=== PATIENT | female | born 1980 | race Caucasian/White ===

== ENCOUNTER 2016-12-04 13:48 | Emergency (ER) | payer MEDICAID ==
[~2016-12-04] VITALS: Ht 157.5 cm; Wt 98.0 kg
[2016-12-04 13:51] VITALS: BP_SYST 168
[2016-12-04 14:24] LABS: BILIRUBIN,URINE NEGATIVE (NEGATIVE); CLARITY/URINE CLEAR (CLEAR); COLOR,URINE YELLOW (YELLOW); GLUCOSE,URINE NEGATIVE (NEGATIVE); KETONES,URINE NEGATIVE (NEGATIVE); LEUKOCYTE ESTERASE ,URINE NEGATIVE (NEGATIVE); NITRITE, URINE NEGATIVE (NEGATIVE); PROTEIN URINE NEGATIVE (NEGATIVE); UROBILINOGEN,URINE 0.2 (0.2-1.0)
[2016-12-04 14:27] LABS: BASOPHILS # (AUTO) 0.1 K/uL (0.0-0.2); BASOPHILS % (AUTO) 0.6 % (0.0-2.0); EOSINOPHILS # (AUTO) 0.3 K/uL (0.0-0.4); EOSINOPHILS % (AUTO) 2.8 % (0.0-4.0); HEMATOCRIT 37.8 % (36-48); LYMPHOCYTES # (AUTO) 2.8 K/uL (1.0-5.5); LYMPHOCYTES % (AUTO) 29.2 % (20.5-51.5); MEAN CORPUSCULAR HEMOGLOBIN 30 pg (27-31); MEAN CORPUSCULAR HGB CONC 34 % (32-36); MEAN CORPUSCULAR VOLUME 87 fL (79.0-98.0); MONOCYTES # (AUTO) 0.4 K/uL (0.0-1.0); MONOCYTES % (AUTO) 4.7 % (1.7-9.3); NEUTROPHILS # (AUTO) 5.9 K/uL (1.8-7.7); NEUTROPHILS % (AUTO) 62.7 % (40.0-70.0); PLATELET COUNT (AUTO) 236 K/uL (130-430); RED BLOOD CELL COUNT(AUTO) 4.34 MIL/uL (4.2-6.2); RED CELL DISTRIBUTION WIDTH 12.7 % (9.0-15.0); WHITE BLOOD COUNT (AUTO) 9.5 K/uL (4.8-10.8)
[2016-12-04] MEDS ORDERED: hydrALAZINE HCL 20 MG/ML VIAL IVP ONE (14:30)
[2016-12-04] MEDS ORDERED: FIORCET PO ONE (14:30)
[2016-12-04 14:38] LABS: CALCIUM 8.7 mg/dL (8.4-11.0); CREATININE 0.97 mg/dL (0.55-1.30); POTASSIUM 3.4 mmol/L (3.5-5.1)
[2016-12-04 14:42] LABS: BLOOD, URINE TRACE (NEGATIVE); PROTHROMBIN TIME 10.5 SECS (9.5-12.5)
[2016-12-04 14:43] LABS: ALBUMIN 3.9 g/dL (3.4-4.8); TOTAL BILIRUBIN 0.3 mg/dL (0.0-1.0)
[2016-12-04 14:54] LABS: BACTERIA,URINE FEW /HPF (None Seen); MUCUS,URINE 1+ /LPF (None Seen); RBC,URINE 0-3 /HPF (0-3); WBC,URINE 0-3 /HPF (0-3)
[2016-12-04 17:40] VITALS: BP_SYST 148
== END 2016-12-04 17:40 | disposition home or self-care (01) ==
LOC: SED 13:48
DX: M94.0 Chondrocostal junction syndrome [Tietze] (principal); I10 Essential (primary) hypertension; Z90.49 Acquired absence of other specified parts of digestive tract
CPT/HCPCS: 36415; 71010; 80053; 81000; 83880; 84484; 85025; 85610; 85730; 93005; 96374; 99285; J0360

== ENCOUNTER 2018-07-05 10:02 | Emergency (ER) | payer MEDICAID ==
[~2018-07-05] VITALS: Ht 157.5 cm; Wt 108.9 kg
[2018-07-05 10:15] VITALS: BP_SYST 202
[2018-07-05] MEDS ORDERED: NACL 0.9% 1,000 ML IV ONE (10:31)
[2018-07-05] MEDS ORDERED: DIPHENHYDRAMINE INJ 50 MG/ML VIAL IVP ONE (10:45)
[2018-07-05] MEDS ORDERED: ONDANSETRON HCL 4 MG/2 ML VIAL IVP ONE (10:45)
[2018-07-05] MEDS ORDERED: KETOROLAC TROMETHAMINE 30 MG VIAL IVP ONE (10:45)
[2018-07-05 11:09] LABS: CALCIUM 8.9 mg/dL (8.4-11.0); CREATININE 0.85 mg/dL (0.55-1.30); POTASSIUM 4.2 mmol/L (3.5-5.1)
[2018-07-05 11:11] LABS: BILIRUBIN,URINE NEGATIVE (NEGATIVE); BLOOD, URINE 1+ (NEGATIVE); CLARITY/URINE CLEAR (CLEAR); COLOR,URINE YELLOW (YELLOW); GLUCOSE,URINE NEGATIVE (NEGATIVE); KETONES,URINE NEGATIVE (NEGATIVE); LEUKOCYTE ESTERASE ,URINE NEGATIVE (NEGATIVE); NITRITE, URINE NEGATIVE (NEGATIVE); PH,URINE 6.5 (5.0-8.0); PROTEIN URINE NEGATIVE (NEGATIVE); UROBILINOGEN,URINE 0.2 (0.2-1.0)
[2018-07-05 11:13] LABS: ALBUMIN 3.8 g/dL (3.4-4.8); TOTAL BILIRUBIN 0.3 mg/dL (0.0-1.0)
[2018-07-05 11:21] LABS: BASOPHILS % (AUTO) 0.6 % (0.0-2.0); EOSINOPHILS # (AUTO) 0.3 K/uL (0.0-0.4); EOSINOPHILS % (AUTO) 3.4 % (0.0-4.0); HEMATOCRIT 40.1 % (36-48); HEMOGLOBIN 13.2 g/dL (12.0-16.0); LYMPHOCYTES % (AUTO) 26.5 % (20.5-51.5); MEAN CORPUSCULAR HEMOGLOBIN 29 pg (27-31); MEAN CORPUSCULAR HGB CONC 33 % (32-36); MEAN CORPUSCULAR VOLUME 89 fL (79.0-98.0); MONOCYTES # (AUTO) 0.3 K/uL (0.0-1.0); MONOCYTES % (AUTO) 4.1 % (1.7-9.3); NEUTROPHILS # (AUTO) 4.9 K/uL (1.8-7.7); NEUTROPHILS % (AUTO) 65.4 % (40.0-70.0); PLATELET COUNT (AUTO) 275 K/uL (130-430); RED BLOOD CELL COUNT(AUTO) 4.51 MIL/uL (4.2-6.2); RED CELL DISTRIBUTION WIDTH 13.8 % (9.0-15.0); WHITE BLOOD COUNT (AUTO) 7.4 K/uL (4.8-10.8)
[2018-07-05 11:25] LABS: PROTHROMBIN TIME 9.9 SECS (9.5-12.5)
[2018-07-05 11:32] LABS: BACTERIA,URINE RARE /HPF (None Seen); WBC,URINE NONE SEEN /HPF (0-3)
[2018-07-05] MEDS ORDERED: cloNIDine HCL 0.1 MG TABLET PO ONE (12:00)
[2018-07-05 13:22] VITALS: BP_SYST 144
== END 2018-07-05 13:22 | disposition home or self-care (01) ==
LOC: SED 10:02
DX: G43.909 Migraine, unspecified, not intractable, without status migrainosus (principal); I10 Essential (primary) hypertension
CPT/HCPCS: 36415; 80053; 81000; 81025; 82150; 83690; 85025; 85610; 85730; 96374; 96375; 99283; J1200; J1885; J2405; J7030

== ENCOUNTER 2019-01-03 09:39 | Emergency (ER) | payer MEDICAID ==
[~2019-01-03] VITALS: Ht 157.5 cm; Wt 11.8 kg
[2019-01-03] MEDS ORDERED: NACL 0.9% 1,000 ML IV ONE (09:44)
[2019-01-03 09:46] VITALS: BP_SYST 155
[2019-01-03 10:52] LABS: BASOPHILS % (AUTO) 0.3 % (0.0-2.0); EOSINOPHILS # (AUTO) 0.1 K/uL (0.0-0.4); EOSINOPHILS % (AUTO) 1.4 % (0.0-4.0); HEMATOCRIT 37.2 % (36-48); HEMOGLOBIN 12.9 g/dL (12.0-16.0); LYMPHOCYTES # (AUTO) 1.7 K/uL (1.0-5.5); LYMPHOCYTES % (AUTO) 16.8 % (20.5-51.5); MEAN CORPUSCULAR HEMOGLOBIN 31 pg (27-31); MEAN CORPUSCULAR HGB CONC 35 % (32-36); MEAN CORPUSCULAR VOLUME 90 fL (79.0-98.0); MONOCYTES # (AUTO) 0.4 K/uL (0.0-1.0); MONOCYTES % (AUTO) 4.1 % (1.7-9.3); NEUTROPHILS # (AUTO) 7.9 K/uL (1.8-7.7); NEUTROPHILS % (AUTO) 77.4 % (40.0-70.0); PLATELET COUNT (AUTO) 223 K/uL (130-430); RED BLOOD CELL COUNT(AUTO) 4.13 MIL/uL (4.2-6.2); RED CELL DISTRIBUTION WIDTH 13.4 % (9.0-15.0); WHITE BLOOD COUNT (AUTO) 10.2 K/uL (4.8-10.8)
[2019-01-03 10:56] LABS: BILIRUBIN,URINE NEGATIVE (NEGATIVE); BLOOD, URINE 1+ (NEGATIVE); CLARITY/URINE CLEAR (CLEAR); COLOR,URINE YELLOW (YELLOW); GLUCOSE,URINE NEGATIVE (NEGATIVE); KETONES,URINE NEGATIVE (NEGATIVE); LEUKOCYTE ESTERASE ,URINE NEGATIVE (NEGATIVE); NITRITE, URINE NEGATIVE (NEGATIVE); PH,URINE 6.5 (5.0-8.0); PROTEIN URINE NEGATIVE (NEGATIVE); UROBILINOGEN,URINE 0.2 (0.2-1.0)
[2019-01-03 10:57] LABS: BACTERIA,URINE FEW /HPF (None Seen); RBC,URINE 0-3 /HPF (0-3); WBC,URINE 0-3 /HPF (0-3)
[2019-01-03 11:00] LABS: CALCIUM 8.7 mg/dL (8.4-11.0); CREATININE 0.68 mg/dL (0.55-1.30); POTASSIUM 3.4 mmol/L (3.5-5.1)
[2019-01-03 11:04] LABS: PROTHROMBIN TIME 9.9 SECS (9.5-12.5)
[2019-01-03 11:23] LABS: ALBUMIN 3.3 g/dL (3.4-4.8); TOTAL BILIRUBIN 0.2 mg/dL (0.0-1.0)
[2019-01-03] MEDS ORDERED: RHO(D) IMMUNE GLOBULIN/MALTOSE 1500 UNITS/1.3 ML (WINHRO) INJ ONE (12:45)
[2019-01-03 14:23] VITALS: BP_SYST 135
== END 2019-01-03 14:23 | disposition home or self-care (01) ==
LOC: SED 09:39
DX: O20.0 Threatened abortion (principal); I10 Essential (primary) hypertension; Z3A.12 12 weeks gestation of pregnancy; Z29.13 Encounter for prophylactic Rho(D) immune globulin
CPT/HCPCS: 36415; 76805; 80053; 81000; 82150; 83605; 83690; 84702; 85025; 85610; 85730; 86886; 86900; 86901; 87040; 96372; 99284; J2790; J2792; J7030

== ENCOUNTER 2019-10-10 14:41 | Emergency (ER) | payer MEDICAID ==
[~2019-10-10] VITALS: Ht 157.5 cm; Wt 106.6 kg
--- NOTE | 2019-10-10 15:00 | NUR ---
PLACED IN [facility], DR. RODGERS AT BEDSIDE
--- NOTE | 2019-10-10 15:12 | NUR ---
Patient given written and verbal discharge instructions and verbalizes understanding. ER MD discussed with patient the results and treatment provided. Patient in stable condition. ID arm band removed. Rx of TYLENOL, NEOSPORIN, KEFLEX, given. Patient educated on pain management and to follow up with PMD. Pain Scale 0/10 Opportunity for questions provided and answered. Medication side effect fact sheet provided.
[2019-10-10] MEDS ORDERED: BACITRACIN 1 GM OINT TP ONE (15:15)
== END 2019-10-10 15:12 | disposition home or self-care (01) ==
LOC: SED 14:41
DX: L03.012 Cellulitis of left finger (principal); I10 Essential (primary) hypertension; Z90.710 Acquired absence of both cervix and uterus; F17.200 Nicotine dependence, unspecified, uncomplicated
CPT/HCPCS: 99283

== ENCOUNTER 2020-09-28 14:02 | Emergency (ER) | payer MEDICAID, OTHER ==
[~2020-09-28] VITALS: Ht 157.5 cm; Wt 106.6 kg
[2020-09-28 14:11] VITALS: BP_SYST 169
--- NOTE | 2020-09-28 14:11 | NUR ---
Patient to ER bed 07 to gown for evaluation. Side rails up.
--- NOTE | 2020-09-28 14:13 | NUR ---
PT CAME TO ER FOR CP AND HTN WHICH STARTED TODAY AT 1130. BP AT HOME WAS 171/106. PAIN IS 1/10 TO THE LEFT SIDE OF THE CHEST. PT TOOK 2 ASPIRINS WHEN PAIN STARTED. PT IS CALM AND COOPERATIVE IN ED.
--- NOTE | 2020-09-28 14:16 | NUR ---
Pt came to ER for L chest pain, pt states she gets chest pain when her blood pressure is high. Pt reports L chest pain 2/10, resting in gurney comfortably, EKG completed, no distress noted, awaiting MD vidal
--- NOTE | 2020-09-28 14:27 | NUR ---
ER at bedside examining patient.
[2020-09-28] MEDS ORDERED: cloNIDine HCL 0.1 MG TABLET PO ONE (15:30)
[2020-09-28 15:33] LABS: BASOPHILS # (AUTO) 0.2 K/uL (0.0-0.2); BASOPHILS % (AUTO) 1.9 % (0.0-2.0); EOSINOPHILS # (AUTO) 0.2 K/uL (0.0-0.4); EOSINOPHILS % (AUTO) 1.9 % (0.0-4.0); HEMATOCRIT 37.5 % (36-48); HEMOGLOBIN 12.6 g/dL (12.0-16.0); LYMPHOCYTES # (AUTO) 1.4 K/uL (1.0-5.5); LYMPHOCYTES % (AUTO) 15.7 % (20.5-51.5); MEAN CORPUSCULAR HEMOGLOBIN 30 pg (27-31); MEAN CORPUSCULAR HGB CONC 34 % (32-36); MEAN CORPUSCULAR VOLUME 89 fL (79.0-98.0); MONOCYTES # (AUTO) 0.4 K/uL (0.0-1.0); MONOCYTES % (AUTO) 4.5 % (1.7-9.3); NEUTROPHILS # (AUTO) 6.9 K/uL (1.8-7.7); PLATELET COUNT (AUTO) 229 K/uL (130-430); RED CELL DISTRIBUTION WIDTH 13.7 % (9.0-15.0); WHITE BLOOD COUNT (AUTO) 9.1 K/uL (4.8-10.8)
[2020-09-28 15:52] LABS: CALCIUM 8.7 mg/dL (8.4-11.0); CREATININE 0.89 mg/dL (0.55-1.30); POTASSIUM 4.2 mmol/L (3.5-5.1)
[2020-09-28 15:58] LABS: ALBUMIN 3.6 g/dL (3.4-4.8); TOTAL BILIRUBIN 0.3 mg/dL (0.0-1.0)
--- NOTE | 2020-09-28 16:01 | NUR ---
DR. KEARNEY IS AWARE OF ELEVATED BLOOD PRESSURE
[2020-09-28] MEDS ORDERED: NACL 0.9% 1,000 ML IV ONE (16:15)
[2020-09-28] MEDS ORDERED: hydrALAZINE HCL 20 MG/ML VIAL IVP ONE (16:15)
[2020-09-28] MEDS ORDERED: LISI20TA30 PO (16:59)
[2020-09-28] MEDS ORDERED: LISINOPRIL 10 MG TABLET (PRINIVIL) PO ONE (17:00)
[2020-09-28 17:08] VITALS: BP_SYST 138
--- NOTE | 2020-09-28 17:08 | NUR ---
Patient given written and verbal discharge instructions and verbalizes understanding. ER MD discussed with patient the results and treatment provided. Patient in stable condition. ID arm band removed. IV catheter removed intact and dressing applied, no active bleeding. Rx of LISINOPRIL given. Patient educated on pain management and to follow up with PMD. Pain Scale 0/10. Opportunity for questions provided and answered. Medication side effect fact sheet provided.
== END 2020-09-28 17:08 | disposition home or self-care (01) ==
LOC: SED 14:02
DX: R07.89 Other chest pain (principal); I10 Essential (primary) hypertension; F17.210 Nicotine dependence, cigarettes, uncomplicated
CPT/HCPCS: 36415; 71045; 80053; 83880; 84484; 85025; 93005; 96361; 96374; 99285; J0360; J7030

== ENCOUNTER 2020-10-10 05:23 | Emergency (ER) | payer OTHER, MEDICAID ==
[~2020-10-10] VITALS: Ht 157.5 cm; Wt 98.9 kg
[~2020-10-10 05:23] MED LIST: LISI20TA30 PO
--- NOTE | 2020-10-10 05:28 | NUR ---
Placed in room 4 . Placed on combining machine operator, blood pressure machine and pulse oximeter. To gown for exam. Side rails up. Report given to TREASURE HEAD.
--- NOTE | 2020-10-10 05:28 | NUR ---
Received patient to ER via BLS ambulance w/ c/o dizziness ongoing since 399 associated w/ a h/a. No neuro focal deficits noted but patient states that her peripheral vision feels as she diminshing. Introduced self to patient, positioned for comfort and safety w/ bed to low position sr up, continue to monitor. Patient resting quietly. No acute distress noted. Vital signs within normal range.
[2020-10-10 05:30] VITALS: BP_SYST 118
--- NOTE | 2020-10-10 05:45 | NUR ---
ER at bedside examining patient.
[2020-10-10] MEDS ORDERED: NS 500 ML IV ONE (06:00)
--- NOTE | 2020-10-10 06:00 | NUR ---
# 20 gauge angiocath placed to RAC. Use of asceptic technique. Opsite placed over site. Blood return noted. Blood for lab drawn from site. Flushed with 10 cc of normal saline. No evidence of infiltration noted. Patient tolerated well.
[2020-10-10] MEDS ORDERED: MECLIZINE HCL 25 MG TABLET (ANITVERT) PO ONE (06:15)
--- NOTE | 2020-10-10 06:15 | NUR ---
Medicated w/ Meclizine 25mg po per MD orders. IVF infusing with no s/s of infiltration at this time. Will cont to monitor and observe for any adverse reaction. bed to low position sr up, continue to monitor level of comfort.
[2020-10-10 06:33] LABS: BASOPHILS # (AUTO) 0.1 K/uL (0.0-0.2); BASOPHILS % (AUTO) 0.5 % (0.0-2.0); EOSINOPHILS # (AUTO) 0.2 K/uL (0.0-0.4); HEMATOCRIT 42.1 % (36-48); HEMOGLOBIN 14.4 g/dL (12.0-16.0); LYMPHOCYTES % (AUTO) 18.4 % (20.5-51.5); MEAN CORPUSCULAR HEMOGLOBIN 30 pg (27-31); MEAN CORPUSCULAR HGB CONC 34 % (32-36); MEAN CORPUSCULAR VOLUME 89 fL (79.0-98.0); MONOCYTES # (AUTO) 0.6 K/uL (0.0-1.0); MONOCYTES % (AUTO) 5.8 % (1.7-9.3); NEUTROPHILS # (AUTO) 7.9 K/uL (1.8-7.7); NEUTROPHILS % (AUTO) 73.3 % (40.0-70.0); PLATELET COUNT (AUTO) 272 K/uL (130-430); RED BLOOD CELL COUNT(AUTO) 4.75 MIL/uL (4.2-6.2); RED CELL DISTRIBUTION WIDTH 13.2 % (9.0-15.0); WHITE BLOOD COUNT (AUTO) 10.8 K/uL (4.8-10.8)
[2020-10-10] MEDS ORDERED: ASA81 PO (06:47)
[2020-10-10] MEDS ORDERED: RIZA10TA21 PO (06:47)
[2020-10-10] MEDS ORDERED: CHLO25TA2 PO (06:47)
[2020-10-10] MEDS ORDERED: TOP25 PO (06:47)
--- NOTE | 2020-10-10 06:47 | NUR ---
Medication reconciliation completed with information provided by pt. Any prior medication reconciliation on file was reviewed and corrected.
[2020-10-10 07:00] LABS: CREATININE 1.11 mg/dL (0.55-1.30)
[2020-10-10 07:09] LABS: ALBUMIN 3.9 g/dL (3.4-4.8); TOTAL BILIRUBIN 0.3 mg/dL (0.0-1.0)
[2020-10-10] MEDS ORDERED: POTASSIUM CHLORIDE 20 MEQ TAB.PRT.SR PO ONE (07:30)
--- NOTE | 2020-10-10 08:00 | NUR ---
IV bolus complete, pt. OOB to give urine sample, POC reviewed
[2020-10-10] MEDS ORDERED: MECL-109 PO (08:12)
[2020-10-10] MEDS ORDERED: POTA20TA83 PO (08:12)
[2020-10-10 08:15] LABS: BILIRUBIN,URINE NEGATIVE (NEGATIVE); BLOOD, URINE NEGATIVE (NEGATIVE); CLARITY/URINE CLEAR (CLEAR); COLOR,URINE YELLOW (YELLOW); GLUCOSE,URINE NEGATIVE (NEGATIVE); KETONES,URINE 1+ (NEGATIVE); LEUKOCYTE ESTERASE ,URINE NEGATIVE (NEGATIVE); NITRITE, URINE NEGATIVE (NEGATIVE); PROTEIN URINE NEGATIVE (NEGATIVE); UROBILINOGEN,URINE 0.2 (0.2-1.0)
--- NOTE | 2020-10-10 08:24 | NUR ---
Pt. states no more dizziness, vision WNL, only c/o mild nausea
[2020-10-10 09:15] VITALS: BP_SYST 120
--- NOTE | 2020-10-10 09:16 | NUR ---
Patient given written and verbal discharge instructions and verbalizes understanding. Dr. Mohr discussed with patient the results and treatment provided. Patient in stable condition. ID arm band removed. IV catheter removed intact and dressing applied, no active bleeding. Rx of Meclizine and KDur given. Patient educated on pain management and to follow up with PMD. Pain Scale 0. Opportunity for questions provided and answered. Medication side effect fact sheet provided.
== END 2020-10-10 09:15 | disposition home or self-care (01) ==
LOC: SED 05:23
DX: E87.6 Hypokalemia (principal); R42 Dizziness and giddiness; I10 Essential (primary) hypertension; Z79.899 Other long term (current) drug therapy; Z79.82 Long term (current) use of aspirin
CPT/HCPCS: 36415; 80053; 81003; 81025; 82962; 84484; 85025; 93005; 96360; 99284; J7030; J8597

== ENCOUNTER 2020-11-13 00:24 | Emergency (ER) | payer OTHER, MEDICAID ==
[~2020-11-13] VITALS: Ht 157.5 cm; Wt 99.8 kg
[~2020-11-13 00:24] MED LIST changes: +ASA81 PO; +CHLO25TA2 PO; +MECL-109 PO; +POTA20TA83 PO; +RIZA10TA21 PO; +TOP25 PO
[2020-11-13 00:35] VITALS: BP_SYST 162
--- NOTE | 2020-11-13 00:35 | NUR ---
Placed in room 5 . Placed on mill feeder, blood pressure machine and pulse oximeter. To gown for exam. Side rails up. Report given to Cathleen HEAD.
--- NOTE | 2020-11-13 00:42 | NUR ---
Patient BIB by family from home. C/O Hypertension x today. Patient reported, had nausea and high blood pressure. Hx HTN
--- NOTE | 2020-11-13 00:50 | NUR ---
ER Dr. Narvaez at bedside examining patient.
[2020-11-13] MEDS ORDERED: cloNIDine HCL 0.1 MG TABLET PO ONE (01:00)
[2020-11-13] MEDS ORDERED: cloNIDine HCL 0.1 MG TABLET ONE (01:02)
--- NOTE | 2020-11-13 01:06 | NUR ---
CXR at bedside.
[2020-11-13 02:01] LABS: BASOPHILS % (AUTO) 0.5 % (0.0-2.0); EOSINOPHILS # (AUTO) 0.2 K/uL (0.0-0.4); EOSINOPHILS % (AUTO) 1.7 % (0.0-4.0); HEMATOCRIT 35.8 % (36-48); HEMOGLOBIN 12.1 g/dL (12.0-16.0); LYMPHOCYTES # (AUTO) 2.4 K/uL (1.0-5.5); MEAN CORPUSCULAR HEMOGLOBIN 31 pg (27-31); MEAN CORPUSCULAR HGB CONC 34 % (32-36); MEAN CORPUSCULAR VOLUME 90 fL (79.0-98.0); MONOCYTES # (AUTO) 0.5 K/uL (0.0-1.0); MONOCYTES % (AUTO) 5.4 % (1.7-9.3); NEUTROPHILS % (AUTO) 68.4 % (40.0-70.0); PLATELET COUNT (AUTO) 239 K/uL (130-430); RED BLOOD CELL COUNT(AUTO) 3.96 MIL/uL (4.2-6.2); RED CELL DISTRIBUTION WIDTH 13.8 % (9.0-15.0); WHITE BLOOD COUNT (AUTO) 10.2 K/uL (4.8-10.8)
[2020-11-13 02:16] LABS: ALANINE AMINOTRANSFERASE 15 U/L (12-78); ALBUMIN 3.6 g/dL (3.4-4.8); ASPARTATE AMINOTRANSFERASE 9 U/L (10-37); CALCIUM 8.9 mg/dL (8.4-11.0); CHLORIDE 105 mmol/L (98-107); CREATININE 1.14 mg/dL (0.55-1.30); GLUCOSE 95 mg/dL (70-99); POTASSIUM 3.7 mmol/L (3.5-5.1); SODIUM SERUM 142 mmol/L (136-145); TOTAL BILIRUBIN 0.2 mg/dL (0.0-1.0); UREA NITROGEN, BLOOD 12 mg/dL (8-21)
[2020-11-13] MEDS ORDERED: CLON0.1T PO (02:18)
[2020-11-13 02:20] LABS: ANION GAP 9 (5-15)
[2020-11-13 02:22] LABS: GFR AFRICAN AMERICAN 68 mL/min (>90)
[2020-11-13 02:27] VITALS: BP_SYST 147
--- NOTE | 2020-11-13 02:27 | NUR ---
Patient given written and verbal discharge instructions and verbalizes understanding. ER MD discussed with patient the results and treatment provided. Patient in stable condition. ID arm band removed. Rx of Clonidine given. Patient educated to follow up with PMD. Pain Scale 0/10. Opportunity for questions provided and answered. Medication side effect fact sheet provided.
== END 2020-11-13 02:27 | disposition home or self-care (01) ==
LOC: SED 00:24
DX: I10 Essential (primary) hypertension (principal); R07.9 Chest pain, unspecified; Z79.899 Other long term (current) drug therapy; Z79.82 Long term (current) use of aspirin
CPT/HCPCS: 36415; 71045; 80053; 81025; 84484; 85025; 93005; 99285